=== PATIENT | male | born 1960 | race African-American/Black ===

== ENCOUNTER 2025-03-31 14:43 | Emergency (ER) | payer MEDICAID, OTHER ==
[~2025-03-31] VITALS: Ht 177.8 cm; Wt 91.9 kg
[2025-03-31] MEDS: MIDAZOLAM HCL 5 MG/ML-1ML VIAL IM ONE (15:37)
[2025-03-31] MEDS: HALOPERIDOL LACTATE 5 MG/ML INJ VIAL IM ONE (15:37)
[2025-03-31 16:30] VITALS: PULSE 88; RESP 20; O2SAT 98
--- NOTE | 2025-03-31 16:33 | DVH ---
CT HEAD WITHOUT CONTRAST INDICATION: fall EXAM DATE: 03/31/2025 04:02 PM COMPARISON: None RADIATION DOSE: CTDIvol: 47.38 mGy, DLP: 881.03 mGy*cm PROCEDURE: CT scans of the head were obtained from the vertex to the skull base. Sagittal and coronal reconstructions were provided. All CT scans at this medical facility are performed using dose modulation techniques as appropriate t o a performed exam including the following: Automated exposure control was utilized; adjustment of th e MA and/or KV according to patient size; and use of iterative reconstruction technique. FINDINGS: There is sulcal and ventricular prominence. The brainshows normal morphology and nelson-whi te matter differentiation, without intracranial hemorrhage, extra-axial fluid collection, mass effect or acute large vessel infarct. The ventricles are normal in size. The basal cisterns are patent. The skull and visible facial bones are intact. The paranasal sinuses, mastoid air cells and middle ear c avities are well-aerated. The soft tissues of the scalp are unremarkable. IMPRESSION: No acute intracranial abnormality.
--- NOTE | 2025-03-31 16:48 | ECG ---
[facility] Test Date: 2025-03-31 Test Time: 16:01:41 Pat Name: HARRIETT FELDER Department: ED Room: Gender: M Healthcare Technician: gp : 1960 Requested By: CLAUDIA DOVE Order Number: [id number] Reading MD: Measurements Intervals Mathias Rate: 83 P: 32 TN: 209 QRS: -73 QRSD: 91 T: 70 QT: 388 QTc: 456 Interpretive Statements Sinus rhythm Left anterior fascicular block Abnormal R-wave progression, late transition LVH by voltage Borderline T abnormalities, anterior leads Please click the below link to view image of tracing.
[2025-03-31] MEDS: TETANUS-DIPTH-ACEL PERTUSSIS 0.5ML SYR Tdap IM ONE (17:30)
--- NOTE | 2025-03-31 18:03 | ED.PDOC ---
History of Present Illness HPI Comments 64 y/o M is [id number] son for c/c head injury. Per son, patient slipped on a beer bottle and hit the back of his head after getting intoxicated on alcohol, earlier, today. He is also reported to have contracted glass shards in his right thigh. No additional injuries or acute symptoms endorsed. Patient is intoxicated. Refuses to answer further questions, such as last tetanus shot or further pertinent history. Chief Complaint: ETOH Time Seen by MD: 15:10 Reviewed Notes: Nurses Notes, Medications, Allergies Allergies: Coded Allergies: NO KNOWN ALLERGIES (Unverified , 03/31/25) Information Source: Patient, Relative (Child) Mode of Arrival: Ambulatory Severity: Moderate Timing: Hours Duration: Since onset Prehospital treatment: None All Other Systems: Reviewed and Negative (Comprehensive review of systems are negative unless otherwise stated in HPI) Physical Exam General Appearance: No Apparent Distress, Normal, Other (intoxicated ) HEENT: Normal ENT Inspection, Pharynx Normal, TMs Normal Neck: Full Range of Motion, Non-Tender, Normal, Normal Inspection Respiratory: Chest Non-Tender, Lungs Clear, No Accessory Muscle Use, No Respiratory Distress, Normal Breath Sounds Cardiovascular: No Edema, No JVD, No Murmur, No Gallop, Normal Peripheral Pulses, Regular Rate/Rhythm Breast Exam: Deferred Gastrointestinal: No Organomegaly, Non Tender, No Pulsatile Mass, Normal Bowel Sounds, Soft Genitalia: Deferred Pelvic: Deferred Rectal: Deferred Extremities: No calf tenderness, Normal capillary refill, Normal inspection, Normal range of motion, Non-tender, No pedal edema Musculoskeletal : Apperance: Normal Neurologic: Alert, hat blocking operator II-XII nml as Tested, No Motor Deficits, Speech Problem (slurred ), Other (intoxicated) Cerebellar Function: Normal Reflexes: Normal Skin: Dry, Normal Color, Warm, Other (3cm x 3cm lump to posterior aspect of head) Lymphatic: No Adenopathy Was a procedure done? Was a procedure done?: No EKG EKG : Pulse Rate (adult): 83 [place]: Normal Cardiac Rhythm: NSR Block: None Hypertrophy: None ST: Normal Differential Dx Considerations may include: closed head injury, encephalopathy, dehydration, electrolyte imbalance, substance abuse/intoxication, fractures, contusions, among others. X-Ray, Labs, Meds, VS Vital Signs Date Time Temp Pulse Resp B/P (MAP) Pulse Ox O2 Delivery O2 Flow Rate FiO2 03/31/25 23:57 107 13 137/96 (110) 94 03/31/25 22:58 99 14 137/100 (112) 98 03/31/25 21:00 94 14 134/95 (108) 98 03/31/25 19:30 92 14 99 Simple Mask* 6 50 03/31/25 19:30 99.0 92 14 138/96 (110) 99 99.0 03/31/25 18:03 83 03/31/25 17:58 84 14 119/91 (100) 98 03/31/25 16:30 88 20 98 Simple Mask* 6 50 03/31/25 16:01 83 03/31/25 15:58 97.7 87 22 148/104 (119) 90 97.7 03/31/25 15:00 97.7 121 20 158/113 (128) 98 97.7 Current Medications Medications (Trade) Dose Ordered Sig/Nilton Route Start Time Stop Time Status Last Admin Haloperidol Lactate (Haldol) 10 mg ONCE ONCE IM 03/31/25 15:30 03/31/25 15:31 DC 03/31/25 15:37 Midazolam HCl (Versed Injection) 10 mg ONCE ONCE IM 03/31/25 15:45 03/31/25 15:46 DC 03/31/25 15:37 [place] [address] Ph: [phone] DIAGNOSTIC IMAGING Diagnostic Imaging Report : [id number] Signed PATIENT: HARRIETT FELDER ACCT: [id number] UNIT: [id number] : 1960 LOC: ER ROOM / BED: / AGE / SEX: 64 / M ADM STATUS: REG ER SERVICE 01 ORDERING PHYSICIAN: CLAUDIA DOVE MD PROCEDURE(s): RFEM - R FEMUR XRAY REASON: right leg pain ORDER NUMBER(s): [id number], ACCESSION NUMBER(s): [id number] CLINICAL INDICATION: right leg pain TECHNIQUE: 4 radiographic views of the right femur were obtained. Comparison: None FINDINGS/IMPRESSION: Right femur appears intact. No fracture or dislocation. No radiopaque foreign bodies. Right hip appears normal with no dislocation. HS:Y ATED BY: SEBASTIÁN VERA Jr., DO DICTATED DATE/TIME: 03/31/252020 SIGNED BY: SEBASTIÁN VERA Jr., DO SIGNED DATE/TIME: 03/31/252020 CC: [place] [address] Ph: [phone] DIAGNOSTIC IMAGING Diagnostic Imaging Report : [id number] Signed PATIENT: HARRIETT FELDER ACCT: [id number] UNIT: [id number] : 1960 LOC: ER ROOM / BED: / AGE / SEX: 64 / M ADM STATUS: REG ER SERVICE 16 ORDERING PHYSICIAN: CLAUDIA DOVE MD PROCEDURE(s): HWOCT - HEAD WITHOUT CONTRAST REASON: fall ORDER NUMBER(s): [id number], ACCESSION NUMBER(s): [id number] CT HEAD WITHOUT CONTRAST INDICATION: fall EXAM DATE: 03/31/2025 04:02 PM COMPARISON: None RADIATION DOSE: CTDIvol: 47.38 mGy, DLP: 881.03 mGy*cm PROCEDURE: CT scans of the head were obtained from the vertex to the skull base. Sagittal and coronal reconstructions were provided. All CT scans at this medical facility are performed using dose modulation techniques as appropriate to a performed exam including the following: Automated exposure control was utilized; adjustment of the MA and/or KV according to patient size; and use of iterative reconstruction technique. FINDINGS: There is sulcal and ventricular prominence. The brainshows normal morphology and nelson-white matter differentiation, without intracranial hemorrha ge, extra-axial fluid collection, mass effect or acute large vessel infarct. The ventricles are normal in size. The basal cisterns are patent. The skull and visible facial bones are intact. The paranasal sinuses, mastoid air cells and middle ear cavities are well-aerated. The soft tissues of the scalp are unremarkable. IMPRESSION: No acute intracranial abnormality. ATED BY: JADIEL VELIZ MD DICTATED DATE/TIME: 03/31/251629 SIGNED BY: JADIEL VELIZ MD SIGNED DATE/TIME: 03/31/25 1630 CC: Time of 1ST Reevaluation: 15:40 Reevaluation 1ST: Unchanged Patient Education/Counseling: Diagnosis, Treatment Family Education/Counseling: Diagnosis, Treatment SEPSIS Sepsis Screen Date sepsis recognized/suspect: Mar 31, 2025 Time Sepsis recognized/suspect: 1502 Recent Procedure: No On Antibiotic Therapy: No Respiratory Rate >20: No Heart Rate >90: Yes Temp<36 C (96.8 F) or >38.3 C: No SBP <90 or MAP <65 mmHG: No New Acute Mental Status Change: No Is the patient on CPAP, BIPAP,: No Physician Orders Head Without Contrast (03/31/25 15:17) R Femur Xray (03/31/25 19:02) Vital Signs Date Time Temp Pulse Resp B/P (MAP) Pulse Ox O2 Delivery O2 Flow Rate FiO2 03/31/25 23:57 107 13 137/96 (110) 94 03/31/25 22:58 99 14 137/100 (112) 98 03/31/25 21:00 94 14 134/95 (108) 98 03/31/25 19:30 92 14 99 Simple Mask* 6 50 03/31/25 19:30 99.0 92 14 138/96 (110) 99 99.0 03/31/25 18:03 83 03/31/25 17:58 84 14 119/91 (100) 98 03/31/25 16:30 88 20 98 Simple Mask* 6 50 03/31/25 16:01 83 03/31/25 15:58 97.7 87 22 148/104 (119) 90 97.7 03/31/25 15:00 97.7 121 20 158/113 (128) 98 97.7 Medications Medications Dose Ordered Sig/[place] Route Start Time Stop Time Status Last Admin Dose Admin Haloperidol Lactate 10 mg ONCE ONCE IM 03/31/25 15:30 03/31/25 15:31 DC 03/31/25 15:37 Midazolam HCl 10 mg ONCE ONCE IM 03/31/25 15:45 03/31/25 15:46 DC 03/31/25 15:37 Departure 1 Departure Time of Disposition: 00:35 Impression: Primary Impression: Abrasion of right leg Additional Impressions: Alcohol abuse Head injury Disposition: HOME / SELF CARE / HOMELESS Condition: Stable Discharged With: Self, Relative Comments Patient has a GCS 15 and is ambulatory with steady gait. Pt's son will help bring him home and plans to watch him tonight. CT head and right leg xray show no acute pathology Critical Care Note Critical Care Time?: No Stability Stability form required: No Heart Score Heart Score: Heart Score Response (Comments) Value History N/A 0 EKG N/A 0 Age N/A 0 Risk Factors N/A 0 Troponin N/A 0 Total 0 I personally scribed for CLAUDIA DOVE MD ([email or web address]) on 03/31/25 at 18:03. Electronically submitted by Abram Vargas ([email or web address]). I personally scribed for CLAUDIA DOVE MD ([email or web address]) on 04/01/25 at 00:26. Electronically submitted by Abram Vargas ([email or web address]). CLAUDIA DOVE MD Mar 31, 2025 18:03 KIMI RAMIREZ MD Apr 01, 2025 00:37
[2025-03-31 19:30] VITALS: PULSE 92; RESP 14; TEMP 99; O2SAT 99
--- NOTE | 2025-03-31 20:24 | DVH ---
CLINICAL INDICATION: right leg pain TECHNIQUE: 4 radiographic views of the right femur were obtained. Comparison: None FINDINGS/IMPRESSION: Right femur appears intact. No fracture or dislocation. No radiopaque foreign bodies. Right hip appears normal with no dislocation. HS:Y
[2025-03-31 23:57] VITALS: BP 137/96; PULSE 107; RESP 13; O2SAT 94
== END 2025-04-01 00:45 | disposition home or self-care (01) ==
LOC: ER 14:43
DX: S80.811A Abrasion, right lower leg, initial encounter (principal); S09.8XXA Other specified injuries of head, initial encounter; F10.129 Alcohol abuse with intoxication, unspecified; W18.09XA Striking against other object with subsequent fall, initial encounter; Y93.89 Activity, other specified; Y92.89 Other specified places as the place of occurrence of the external cause; Y99.8 Other external cause status; Y90.9 Presence of alcohol in blood, level not specified
CPT/HCPCS: 70450; 73552; 93005; 96372; 99285; J1630; J2250

== ENCOUNTER 2025-06-13 19:32 | Emergency (ER) | payer MEDICAID ==
[~2025-06-13] VITALS: Ht 177.8 cm; Wt 95.0 kg
[2025-06-13] MEDS ORDERED: chlorproMAZINE HCL 25 MG/1 ML AMP IM ONE (20:15)
--- NOTE | 2025-06-13 20:15 | ED.PDOC ---
GI ASSESSMENT HPI Comments 64y M who presents to the ED for chief complaint of nausea and vomiting. Pt states he has been having epigastric abdominal pain for the past 4 days and states he has been having nonstop hiccups. pt states he has been vomiting to help prevent the hiccups from occurring. Pt states due to his vomiting episodes, he has been having epigastric abdominal pain. Pt otherwise states he has also been drinking very heavy for the past few weeks due to passing of his father. Pt states he has been trying multiple OTC antacids but states it has not been helping and decided to come for further evaluation. Pt in the ED, otherwise has noted BP of 162/96 with otherwise stable vitals. Pt denies any other symptoms at this time. Chief Complaint: Nausea/Vomiting Time Seen by MD: 20:10 Reviewed Notes: Medications, Allergies Allergies: Coded Allergies: NO KNOWN ALLERGIES (Unverified , 03/31/25) Information Source: Patient, Relative Mode of Arrival: Ambulatory Brought in by: family member Timing: Days Past Medical History PAST MEDICAL HISTORY: Unknown Surgical History: Unknown Family History Family History: Unknown Social History Smoker: Non-Smoker Alcohol: Heavy Drugs: Denies Drug Use Lives In: Home Constitutional: denies: chills, diaphoresis, fatigue, fever, malaise, sweats, weakness, others EENTM: denies: blurred vision, double vision, ear bleeding, ear discharge, ear drainage, ear pain, ear ringing, eye pain, eye redness, hearing loss, mouth pain, mouth swelling, nasal discharge, nose bleeding, nose congestion, nose pain, photophobia, tearing, throat pain, throat swelling, voice changes, others Respiratory: denies: cough, hemoptysis, orthopnea, SOB at rest, shortness of breath, SOB with excertion, stridor, wheezing, others Cardiovascular: denies: chest pain, dizzy spells, diaphoresis, Dyspnea on exertion, edema, irregular heart beat, left arm pain, lightheadedness, palpitations, PND, syncope, others Gastrointestinal: reports: abdominal pain, nausea, vomiting; denies: abdomen distended, blood streaked bowels, constipated, diarrhea, dysphagia, difficulty swallowing, hematemesis, melena, poor appetite, poor fluid intake, rectal bleeding, rectal pain, others Genitourinary: denies: burning, dysuria, flank pain, frequency, hematuria, incontinence, penile discharge, penile sore, pain, testicle pain, testicle swelling, urgency, others Neurological: denies: dizziness, fainting, headache, left sided numbness, left sided weakness, numbness, paresthesia, pre-existing deficit, right sided numbness, right sided weakness, seizure, speech problems, tingling, tremors, weakness, others Musculoskeletal: denies: back pain, gout, joint pain, joint swelling, muscle pain, muscle stiffness, neck pain, others Integumetry: denies: bruises, change in color, change in hair/nails, dryness, laceration, lesions, lumps, rash, wounds, others Allergic/Immunocompromised: denies: Difficulty Healing, Frequent Infections, Hives, Itching, others Hematologic/Lymphatic: denies: anemia, blood clots, easy bleeding, easy bruising, swollen glands, others Endocrine: denies: excessive hunger, excessive sweating, excessive thirst, excessive urination, flushing, intolerance to cold, intolerance to heat, unexplained weight gain, unexplained weight loss, others Psychiatric: denies: anxiety, bipolar disorder, depression, hopeless, panic disorder, schizophrenia, sleepless, suicidal, others All Other Systems: Reviewed and Negative Physical Exam General Appearance: No Apparent Distress, Normal HEENT: Normal ENT Inspection, Pharynx Normal, TMs Normal Neck: Full Range of Motion, Non-Tender, Normal, Normal Inspection Respiratory: Chest Non-Tender, Lungs Clear, No Accessory Muscle Use, No Respiratory Distress, Normal Breath Sounds Cardiovascular: No Edema, No JVD, No Murmur, No Gallop, Normal Peripheral Pulses, Regular Rate/Rhythm Breast Exam: Deferred Gastrointestinal: Epigastric (tenderness) Genitalia: Deferred Pelvic: Deferred Rectal: Deferred Extremities: No calf tenderness, Normal capillary refill, Normal inspection, Normal range of motion, Non-tender, No pedal edema Musculoskeletal : Apperance: Normal Neurologic: Alert, sole rounding machine operator II-XII nml as Tested, No Motor Deficits, Normal Affect, Normal Mood, No Sensory Deficits Cerebellar Function: Normal Reflexes: Normal Skin: Dry, Normal Color, Warm Lymphatic: No Adenopathy Was a procedure done? Was a procedure done?: No GI differential Dx Differential Diagnosis: Esophageal rupture, Esophagitis, Gastritis/PUD, Gastroenteritis, GI hemorrhage, Hernia, Pancreatitis, Dehydration, Stress Ulcer Other Differential Diagnosis ETOH use X-Ray, Labs, Meds, VS Vital Signs Date Time Temp Pulse Resp B/P (MAP) Pulse Ox O2 Delivery O2 Flow Rate FiO2 06/13/25 19:33 98.0 111 18 162/96 98 98.0 Current Medications Medications (Trade) Dose Ordered Sig/[place] Route Start Time Stop Time Status Last Admin Lidocaine HCl (Xylocaine 2% Viscous) 5 ml ONCE ONCE MT 06/13/25 20:15 06/13/25 20:16 DC 06/13/25 21:08 Al Hydrox/Mg Hydrox/Simethicone (Maalox Plus) 30 ml ONCE ONCE PO 06/13/25 20:15 06/13/25 20:16 DC 06/13/25 21:08 X-Ray, Labs, Meds, VS Comment Imaging was reviewed by this provider, there is no obvious pathological or acute disease process. Pending radiology review Labs were reviewed by this provider, no abnormalities Vital signs reviewed by this provider, clinically stable Time of 1ST Reevaluation: 20:40 Reevaluation 1ST: Unchanged Patient Education/Counseling: Diagnosis, Treatment, Need For Follow Up (Follow up with the PCP in the next two days. Return to the emergency department if symptoms worsen.) Family Education/Counseling: Diagnosis, Treatment SEPSIS Sepsis Screen Date sepsis recognized/suspect: Jun 13, 2025 Time Sepsis recognized/suspect: 1933 Recent Procedure: No On Antibiotic Therapy: No Respiratory Rate >20: No Heart Rate >90: No Temp<36 C (96.8 F) or >38.3 C: No SBP <90 or MAP <65 mmHG: No New Acute Mental Status Change: No Is the patient on CPAP, BIPAP,: No Vital Signs Date Time Temp Pulse Resp B/P (MAP) Pulse Ox O2 Delivery O2 Flow Rate FiO2 06/13/25 19:33 98.0 111 18 162/96 98 98.0 Medications Medications Dose Ordered Sig/[place] Route Start Time Stop Time Status Last Admin Dose Admin Al Hydrox/Mg Hydrox/Simethicone 30 ml ONCE ONCE PO 06/13/25 20:15 06/13/25 20:16 DC 06/13/25 21:08 Lidocaine HCl 5 ml ONCE ONCE MT 06/13/25 20:15 06/13/25 20:16 DC 06/13/25 21:08 Departure 1 Departure Time of Disposition: 22:05 Impression: Primary Impression: Acid reflux Qualified Codes: K21.00 - Gastro-esophageal reflux disease with esophagitis, without bleeding Additional Impression: Hiccups Disposition: 01 HOME / SELF CARE / HOMELESS Condition: Stable e-Prescriptions Baclofen (Baclofen) 20 Mg Tab 1 TAB PO TID PRN, #20 TAB 2 Refills Prov: CONNIE MOLINA 06/13/25 Omeprazole (Omeprazole Dr) 40 Mg Cap 40 MG PO DAILY for 20 Days, #20 CAP Prov: CONNIE MOLINA 06/13/25 Discharged With: Self Critical Care Note Critical Care Time?: No Stability Stability form required: No Heart Score Heart Score: Heart Score Response (Comments) Value History N/A 0 EKG N/A 0 Age N/A 0 Risk Factors N/A 0 Troponin N/A 0 Total 0 I personally scribed for CONNIE MOLINA ([email or web address]) on 06/13/25 at 20:15. Electronically submitted by Luis HERNANDEZ). CONNIE MOLINA Jun 13, 2025 20:15
[2025-06-13] MEDS: MAALOX PLUS or MAALOX 30 ML PO ONE (21:08)
[2025-06-13] MEDS: LIDOCAINE VISCOUS 2% 15ML UD MT ONE (21:08)
[2025-06-13] MEDS ORDERED: BACL20TA PO (22:06)
[2025-06-13] MEDS ORDERED: OMEP-448 PO (22:06)
[2025-06-13 22:25] VITALS: BP 145/91; PULSE 111; TEMP 97.9; O2SAT 99
[2025-06-13] MEDS: METOCLOPRAMIDE HCL 5MG/ml INJ 2ml VIAL IM ONE (22:25)
[2025-06-13 22:30] VITALS: RESP 18
== END 2025-06-13 22:35 | disposition home or self-care (01) ==
LOC: ER 19:32
DX: K21.00 Gastro-esophageal reflux disease with esophagitis, without bleeding (principal); R06.6 Hiccough; Z79.899 Other long term (current) drug therapy
CPT/HCPCS: 96372; 99283; J2765